=== PATIENT | male | born 1985 | race Caucasian/White ===

== ENCOUNTER 2023-09-17 03:47 | Emergency (ER) | payer OTHER, SELFPAY ==
[2023-09-17 03:52] VITALS: BP 175/104; PULSE 125; RESP 25; TEMP 36.2; O2SAT 89; BMI 37.6
--- NOTE | 2023-09-17 03:57 | W.ED.CHESTPA ---
HPI - Chest Pain General: Chief Complaint: Chest Pain Stated Complaint: chest pain Time Seen by Provider: 09/17/23 03:56 History of Present Illness: 2-year-old male with no prior history of coronary disease. He presents with his chest discomfort that [place] up[place] He had evidently had some alcohol and marijuana Gummies yesterday. He notes that this was not much in terms of amount. He has not had pain like this before. Pain is sharp across his chest. He is short of breath. He does not have any leg pain or swelling that is significant. He is noted on arrival to be tachycardic with mildly low oxygen saturations. Associated symptoms: Deny abdominal pain, fever(s), nausea, palpitations or vomiting Review of Systems Const: Denies: fever(s), chills or body aches Eyes: Denies: change in vision Card: Denies: palpitations Resp: Denies: productive cough, non-productive cough or wheezing GI: Denies: abdominal pain, nausea, vomiting, diarrhea or hematochezia Skin/Breast: Denies: rash Neuro: Denies: headache(s), weakness in extremities, dizziness or confusion Physical Exam Const: GENERAL APPEARANCE: cooperative and anxious; not ill appearing and not frail appearing HENMT: COMMON NORMALS: normocephalic, atraumatic and Normal external nose present HEAD & SCALP: normocephalic and atraumatic FACE & SINUS: normal facial exam and face symmetric NOSE: Normal external nose present Eye: COMMON NORMALS: Equal, round and reactive pupils present and EOMs intact bilaterally PUPIL: Yes Equal, round and reactive pupils present Neck/C-Spine: GENERAL: Yes trachea midline Chest: CHEST: Yes Symmetrical chest wall rise Resp: COMMON NORMALS: normal respiratory effort, No retractions, No use of accessory muscles and clear to auscultation bilaterally AUSCULTATION: clear to auscultation bilaterally Cardio: COMMON NORMALS: regular rhythm RATE: tachycardic RHYTHM: regular rhythm GI: COMMON NORMALS: Normal to inspection, nondistended, normoactive bowel sounds present Extremity: COMMON NORMALS: no pedal edema Neuro: JHONATAN COMA SCALE: document GCS findings Jhonatan coma scale eye opening: Spontaneous [place] coma scale verbal response: Orientated Jhonatan coma scale motor response: Obey commands Jhonatan coma scale total score: 15 SENSORY EXAM: Yes extremities (intact) Psych: COMMON NORMALS: speech normal SPEECH: Yes normal speech Skin: COMMON NORMALS: no rashes or lesions noted GENERAL SKIN EXAM: no rashes or lesions noted Course Vital Signs: Vital signs: Vital Signs Temperature 97.1 F L 09/17/23 06:24 Pulse Rate 91 09/17/23 06:24 Respiratory Rate 18 09/17/23 06:24 Blood Pressure 143/95 09/17/23 06:24 Pulse Oximetry 91 09/17/23 06:24 MDM - Chest Pain Medical Decision Making Patient presents with chest discomfort, sharp in nature. He is tachycardic, somewhat splinting to breathe. He appears quite anxious. EKG shows sinus tachycardia with a rate of 125, normal axis, no acute ST wave changes. Intervals are normal. CBC is normal. BMP is normal. First troponin is 7 with a BNP of less than 36. His D-dimer is nondetectable as well. Second troponin is pending, and will likely be normal. The patient is improved after treatment with metoprolol and Ativan here. He is resting comfortably. He will be discharged pending a normal second troponin. Outpatient follow-up. Lab Data 09/17/23 03:54 09/17/23 03:54 Radiology Impressions Chest X-Ray 09/17/23 04:06 IMPRESSION: Low lung volume. No focal infiltrate identified. Apparent enlargement of the cardiopericardial silhouette. Follow-up PA and lateral view will be helpful. Laboratory Results WBC 11.19 10^3/uL (3.29-11.43) 09/17/23 03:54 RBC 4.65 10^6/uL (3.85-5.65) 09/17/23 03:54 Hgb 15.20 g/dL (11.27-16.99) 09/17/23 03:54 Hct 43.8 % (37-53) 09/17/23 03:54 MCV 94.2 fl (82-101) 09/17/23 03:54 MCH 32.7 pg (27-33) 09/17/23 03:54 MCHC 34.7 g/dL (30-55) 09/17/23 03:54 RDW 12.9 % (12.1-15.1) 09/17/23 03:54 Plt Count 301 10^3/cmm (157-399) 09/17/23 03:54 MPV 10.9 fL (7.4-10.4) H 09/17/23 03:54 Neut % (Auto) 34.1 % 09/17/23 03:54 Lymph % (Auto) 44.8 % 09/17/23 03:54 [place] % (Auto) 16.5 % 09/17/23 03:54 Eos % (Auto) 3.4 % 09/17/23 03:54 Baso % (Auto) 0.8 % 09/17/23 03:54 Neut # (Auto) 3.82 10^3/uL (1.8-7.7) 09/17/23 03:54 Lymph # (Auto) 5.0 10^3/uL (0.8-4.8) H 09/17/23 03:54 [place] # (Auto) 1.9 10^3/uL (0.2-0.9) H 09/17/23 03:54 Eos # (Auto) 0.4 10^3/uL (0.0-0.8) 09/17/23 03:54 Baso # (Auto) 0.1 10^3/uL (0.0-0.1) 09/17/23 03:54 Nucleated RBC % (auto) 0 % 09/17/23 03:54 Nucleated RBCs # 0.0 /100WBC 09/17/23 03:54 D-Dimer <= 0.27 ug/mLFEU (0-0.59) 09/17/23 04:13 Sodium 139 mmol/L (136-145) 09/17/23 03:54 Potassium 3.5 mmol/L (3.5-5.1) 09/17/23 03:54 Chloride 99 mmol/L (98-107) 09/17/23 03:54 Carbon Dioxide 25 mmol/L (22-29) 09/17/23 03:54 Anion Gap 18.5 (5-19) 09/17/23 03:54 BUN 12 mg/dL (6-20) 09/17/23 03:54 Creatinine 1.0 mg/dL (0.7-1.2) 09/17/23 03:54 GFR Calculation 74.1 mL/min (90-130) L 09/17/23 03:54 Glucose 118 mg/dL (65-115) H 09/17/23 03:54 Calculated Osmolality 289 mOsm/kg (285-295) 09/17/23 03:54 Calcium 9.1 mg/dL (8.5-10.5) 09/17/23 03:54 Total Bilirubin 0.2 mg/dL (0.15-1.2) 09/17/23 03:54 AST 35 U/L (0-40) 09/17/23 03:54 ALT 35 U/L (0-41) 09/17/23 03:54 Alkaline Phosphatase 78 U/L (40-130) 09/17/23 03:54 Troponin T Baseline 7 ng/L (0-15) 09/17/23 03:54 Troponin T 120 Minute 11.99 ng/L (0-15) 09/17/23 05:21 Delta Troponin T 4.99 ABS# (0-10) 09/17/23 05:21 NT-Pro-B Natriuret Pep < 36 pg/mL (0-125) 09/17/23 03:54 Total Protein 7.2 g/dL (6.6-8.7) 09/17/23 03:54 Albumin 4.4 g/dL (3.5-5.2) 09/17/23 03:54 Globulin 2.8 g/dL (1.3-4.6) 09/17/23 03:54 Ethyl Alcohol < 10 mg/dL (0-10) 09/17/23 03:54 All radiology interpretation(s) finalized by discharge Discharge Plan Discharge Patient Disposition: Home Clinical Impression: Chest pain Condition: Stable Discharge Orders: Discharge ED (Routine); Ordered 09/17/23 Ordered By: Wiley Gaona Patient Instructions: Chest Pain (ED), Opioid Safety, Pain Management Activity Restrictions/Additional Instructions: Return for significant return of chest pain, shortness of breath, fever, other concerning symptoms. See your doctor next week. Coding Level of Care Code ED Manager Mobility for Sebas Whitehead
--- NOTE | 2023-09-17 04:06 | ECG_ITS ---
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 Measurements Intervals [place] Rate: 125 P: 58 DE: 136 QRS: 26 QRSD: 95 T: 36 QT: 336 QTc: 485 Interpretive Statements SINUS TACHYCARDIA LOW QRS VOLTAGE IN PRECORDIAL LEADS [QRS DEFLECTION < 1.0 mV IN CHEST LEADS] POSSIBLE RIGHT VENTRICULAR CONDUCTION DELAY [RSR (QR) IN V1/V2] NONSPECIFIC T-WAVE ABNORMALITY No previous ECG available for comparison Electronically Signed On 09-17-2023 15:24:58 CDT by Tommy Michel M.D. [email or web address]
--- NOTE | 2023-09-17 04:06 | XRR_ITS ---
PROCEDURE INFORMATION: Exam: XR Chest Exam date and time: 09/17/2023 4:34 AM Age: 38 years old Clinical indication: Chest pressure; Patient HX: C/O chest pain; Additional info: Cp TECHNIQUE: Imaging protocol: Radiologic exam of the chest. Views: 1 view. COMPARISON: No relevant prior studies available. FINDINGS: Lungs: Low lung volume. No consolidation. Pleural spaces: No pleural effusion. No pneumothorax. Heart/Mediastinum: Enlarged cardiopericardial silhouette. Bones/joints: Mild arthritic changes of shoulders. Small osseous density seen superior to right glenoid, could be soft tissue calcification. XR/XR chest 1V portable [id number] IMPRESSION: Low lung volume. No focal infiltrate identified. Apparent enlargement of the cardiopericardial silhouette. Follow-up PA and lateral view will be helpful.
[2023-09-17 04:16] LABS: Basophils # 0.1 10^3/uL (0.0-0.1); Basophils % 0.8 %; Eosinophils # 0.4 10^3/uL (0.0-0.8); Eosinophils % 3.4 %; Hematocrit 43.8 % (37-53); Lymphocytes % 44.8 %; Mean Corpuscular HGB Conc 34.7 g/dL (30-55); Mean Corpuscular Hemoglobin 32.7 pg (27-33); Mean Corpuscular Volume 94.2 fl (82-101); Mean Platelet Volume 10.9 fL (7.4-10.4); Monocytes # 1.9 10^3/uL (0.2-0.9); Monocytes % 16.5 %; Neutrophils # 3.82 10^3/uL (1.8-7.7); Neutrophils % 34.1 %; Nucleated Red Blood Cells % 0 %; Platelet Count 301 10^3/cmm (157-399); Red Blood Count 4.65 10^6/uL (3.85-5.65); Red Cell Distribution Width 12.9 % (12.1-15.1); White Blood Count 11.19 10^3/uL (3.29-11.43)
[2023-09-17] MEDS: LORazepam 2 mg/mL INJ 10 mL MDV 1 MG IVP (04:21)
[2023-09-17] MEDS: metoprolol tartrate 1 mg/1 mL SDV 5 mL 5 MG IVP (04:21)
[2023-09-17 04:32] LABS: D Dimer <= 0.27 ug/mLFEU (0-0.59)
[2023-09-17 04:38] LABS: Troponin(5th) Baseline 7 ng/L (0-15)
[2023-09-17 04:44] LABS: Albumin Level 4.4 g/dL (3.5-5.2); Alkaline Phosphatase 78 U/L (40-130); Blood Urea Nitrogen 12 mg/dL (6-20); Calcium 9.1 mg/dL (8.5-10.5); Carbon Dioxide 25 mmol/L (22-29); Chloride 99 mmol/L (98-107); Creatinine Clr Calc Pharmacy 123.1756; Globulin 2.8 g/dL (1.3-4.6); NT Pro B Type Natriuretic Pept < 36 pg/mL (0-125); Osmolality Calculated 289 mOsm/kg (285-295); Sodium 139 mmol/L (136-145); Total Bilirubin 0.2 mg/dL (0.15-1.2); Total Protein 7.2 g/dL (6.6-8.7)
[2023-09-17 05:00] LABS: Alanine Aminotransferase 35 U/L (0-41); Alcohol Level < 10 mg/dL (0-10); Glomerular Filtration Rate 74.1 mL/min (90-130); Glucose 118 mg/dL (65-115)
[2023-09-17 05:01] LABS: Anion Gap 18.5 (5-19); Aspartate Amino Transferase 35 U/L (0-40); Potassium 3.5 mmol/L (3.5-5.1)
[2023-09-17 05:30] VITALS: BP 187/94; PULSE 103; RESP 18; O2SAT 92
[2023-09-17 05:42] LABS: Troponin 5 2HR 11.99 ng/L (0-15); Troponin 5 2HR Delta 4.99 ABS# (0-10)
[2023-09-17 06:11] VITALS: BP 143/95; PULSE 91; RESP 18; O2SAT 91
[2023-09-17 06:24] VITALS: BP 143/95; PULSE 91; RESP 18; TEMP 36.2; O2SAT 91
== END 2023-09-17 06:24 | disposition home or self-care (01) ==
PROVIDERS: Emergency Provider Emergency Medicine
DX: R07.9 Chest pain, unspecified (principal); I25.10 Atherosclerotic heart disease of native coronary artery without angina pectoris
CPT/HCPCS: 36415; 71045; 80053; 80307; 83880; 84484; 85025; 85378; 93005; 96374; 96375; 99285; J2060; J3490